=== PATIENT | male | born 1945 | race Caucasian/White ===

== ENCOUNTER 2017-07-07 12:34 | Emergency (ER) | payer MEDICARE ==
[2017-07-07 14:19] LABS: BASO % 0.1 % (0-6); EOS % 1.2 % (0-6); GRAN % 75.5 % (47-80); HEMATOCRIT 44.4 % (42.0-52.0); HEMOGLOBIN 15.5 gm/dl (14.0-18.0); LYMPH % 13.4 % (16-45); MEAN CELL VOLUME 81.5 fl (81-97); MEAN CORPUSCULAR HEMOGLOBIN 28.4 pg (27-33); MEAN CORPUSCULAR HGB CONC 34.9 g/dl (32-36); MEAN PLATELET VOLUME 8.9 fl (7.4-10.4); MONO % 9.8 % (0-9); PLATELET COUNT 237 K/uL (130-400); RED BLOOD COUNT 5.45 M/uL (4.40-5.70); RED CELL DISTRIBUTION WIDTH 13.4 % (11.5-14.5); WHITE BLOOD COUNT W/O DIFF 11.1 K/uL (4.2-12.2)
[2017-07-07 14:48] LABS: BLOOD UREA NITROGEN 12 mg/dL (8-23); CREATININE 0.7 mg/dL (0.7-1.2); EST GLOMERULAR FILTRATION RATE > 60 mL/min
[2017-07-07 14:51] LABS: GLUCOSE,RANDOM 110 mg/dL (74-109)
[2017-07-07 15:04] LABS: ERYTHROCYTE SEDIMENTATION RATE 14 mm/hr (0-20)
--- NOTE | 2017-07-07 15:25 | Emergency Department Record ---
History of Present Illness - General Chief complaint: Extremity Problem Stated complaint: LEFT HAND PAIN Time Seen by Provider: 07/07/17 13:23 Source: Patient Mode of Arrival: Ambulatory Limitations: No limitations - History of Present Illness Initial comments: pt has pain in his l hand and swelling. it has slight redness. he does not recall any injury MD Complaint: Extremity pain, Extremity swelling Onset/Timin -: Days(s) Location: Left, Hand History of Same: No Severity scale (1-10): 10 Consistency: Constant Improves with: Nothing Worsens with: Exertion, Weight bearing Associated Symptoms: Denies other symptoms - Related Data Home Medications Medication Instructions Recorded Confirmed Last Taken Losartan Potassium 25 mg PO DAILY 07/07/17 07/07/17 07/07/17 Previous Rx's Medication Instructions Recorded Indomethacin [Indocin] 50 mg PO TID #20 cap 07/07/17 Allergies Allergy/AdvReac Type Severity Reaction Status Date / Time No Known Drug Allergies Allergy Verified 07/07/17 13:11 Travel Screening - Travel/Exposure Within Last 30 Days Have you traveled within the last 30 days?: No Review of Systems Reviewed: No additional complaints except as noted below Constitutional: Reports: As per HPI. Denies: Chills, Fever, Malaise, Night sweats, Weakness, Weight change Eyes: Reports: As per HPI. Denies: Eye discharge, Eye pain, Photophobia, Vision change ENT: Reports: As per HPI. Denies: Congestion, Dental pain, Ear pain, Epistaxis , Hearing loss, Throat pain Respiratory: Reports: As per HPI. Denies: Cough, Dyspnea, Hemoptysis, Stridor, Wheezes Cardiovascular: Reports: As per HPI. Denies: Arrhythmia, Chest pain, Dyspnea on exertion, Edema, Murmurs, Orthopnea, Palpitations, Paroxysmal nocturnal dyspnea, Rheumatic Fever, Syncope Endocrine: Reports: As per HPI. Denies: Fatigue, Heat or cold intolerance, Polydipsia, Polyuria Gastrointestinal: Reports: As per HPI. Denies: Abdominal pain, Constipation, Diarrhea, Hematemesis, Hematochezia, Melena, Nausea, Vomiting Genitourinary: Reports: As per HPI. Denies: Dysuria, Frequency, Hematuria, Incontinence, Retention, Testicular pain, Testicular mass, Urgency Musculoskeletal: Reports: As per HPI. Denies: Arthralgia, Back pain, Gout, Joint swelling, Myalgia, Neck pain Skin: Reports: As per HPI. Denies: Bruising, Change in color, Change in hair/ nails, Lesions, Pruritus, Rash Neurological: Reports: As per HPI. Denies: Abnormal gait, Confusion, Headache, Numbness, Paresthesias, Seizure, Tingling, Tremors, Vertigo, Weakness Psychiatric: Reports: As per HPI. Denies: Anxiety, Auditory hallucinations, Depression, Homicidal thoughts, Suicidal thoughts, Visual hallucinations Hematological/Lymphatic: Reports: As per HPI. Denies: Anemia, Blood Clots, Easy bleeding, Easy bruising, Swollen glands Past Medical History - SOCIAL HISTORY Smoking Status: Former smoker Alcohol Use: None Drug Use: None - RESPIRATORY Hx Respiratory Disorders: No - CARDIOVASCULAR Hx Cardio Disorders: Yes Hx Hypertension: Yes Comment:: high cholesterol - NEURO Hx Neuro Disorders: No - GI Hx GI Disorders: No - Hx Genitourinary Disorders: No - ENDOCRINE Hx Endocrine Disorders: No - MUSCULOSKELETAL Hx Musculoskeletal Disorders: No - PSYCH Hx Psych Problems: No - HEMATOLOGY/ONCOLOGY Hx Hematology/Oncology Disorders: No Family Medical History Any Significant Family History?: Yes Hx Cancer: Father, Mother Physical Exam - General General Appearance: Alert, Oriented x3, Cooperative, Mild distress - Head Head exam: Normal inspection - Eye Eye exam: Normal appearance, PERRL, EOMI Pupils: Normal accommodation - ENT ENT exam: Normal exam, Mucous membranes moist, Normal external ear exam, Normal orophraynx Ear exam: Normal external inspection. negative: External canal tenderness Nasal Exam: Normal inspection. negative: Discharge, Sinus tenderness Mouth exam: Normal external inspection, Tongue normal Teeth exam: Normal inspection. negative: Dental caries Throat exam: Normal inspection. negative: Tonsillar erythema, Tonsillar exudate - Neck Neck exam: Normal inspection, Full ROM. negative: Tenderness - Respiratory Respiratory exam: Normal lung sounds bilaterally. negative: Respiratory distress - Cardiovascular Cardiovascular Exam: Regular rate, Normal rhythm, Normal heart sounds - GI/Abdominal GI/Abdominal exam: Soft, Normal bowel sounds. negative: Tenderness - Rectal Rectal exam: Deferred - exam: Deferred - Extremities Extremities exam: Full ROM, Normal capillary refill, Tenderness, Other (slight erythema and swelling of l dorsum of hand) - Back Back exam: Reports: Normal inspection, Full ROM. Denies: Muscle spasm, Rash noted, Tenderness - Neurological Neurological exam: Alert, Normal gait, Oriented X3, Reflexes normal - Psychiatric Psychiatric exam: Normal affect, Normal mood - Skin Skin exam: Dry, Intact, Normal color, Warm Course Vital Signs 07/07/17 13:19 Temperature 97.6 F Pulse Rate [ 73 Pulse Ox Probe] Respiratory 18 Rate Blood Pressure 135/85 [Left Arm] Pulse Ox 96 Medical Decision Making - Lab Data Result diagrams: 07/07/17 14:12 07/07/17 14:12 Lab Results 07/07/17 07/07/17 Range/Units 14:12 14:12 WBC 11.1 (4.2-12.2) K/uL RBC 5.45 (4.40-5.70) M/uL Hgb 15.5 (14.0-18.0) gm/dl Hct 44.4 (42.0-52.0) % MCV 81.5 (81-97) fl MCH 28.4 (27-33) pg MCHC 34.9 (32-36) g/dl RDW 13.4 (11.5-14.5) % Plt Count 237 (130-400) K/uL MPV 8.9 (7.4-10.4) fl Gran % 75.5 (47-80) % Lymphocytes % 13.4 L (16-45) % Monocytes % 9.8 H (0-9) % Eosinophils % 1.2 (0-6) % Basophils % 0.1 (0-6) % ESR 14 (0-20) mm/hr Sodium 138 (136-145) mmol/L Potassium 3.8 (3.4-4.5) mmol/L Chloride 100 (98-107) mmol/L Carbon Dioxide 27.0 (22-29) mmol/L Anion Gap 11.0 (7-16) BUN 12 (8-23) mg/dL Creatinine 0.7 (0.7-1.2) mg/dL Estimated GFR > 60 mL/min Random Glucose 110 H (74-109) mg/dL Uric Acid 6.10 (3.4-7.0) mg/dL Calcium 9.0 (8.8-10.2) mg/dL Disposition Disposition: Discharge Clinical Impression: Gout Qualifiers: Gout site: hand Gout etiology: unspecified cause Chronicity: acute Laterality: left Qualified Code(s): M10.9 - Gout, unspecified Disposition: Home, Self-Care Condition: (1) Good Instructions: Low Purine Diet (ED), Gout (ED) Additional Instructions: follow up with family doctor. return sooner if worse. moist heat Prescriptions: Indomethacin [Indocin] 50 mg PO TID #20 cap Forms: Patient Portal Access Quality - Quality Measures Quality Measures: N/A - Blood Pressure Screening Does Patient Have Any of the Following: No Blood Pressure Classification: Pre-Hypertensive BP Reading Systolic Measurement: 135 Diastolic Measurement: 85 Screening for High Blood Pressure: < Pre-Hypertensive BP, F/U Documented > [ G8950] Pre-Hypertensive Follow-up Interventions: Follow-up with rescreen every year.
--- NOTE | 2017-07-08 08:04 | RADIOLOGY REPORT ---
EXAM: LEFT HAND HISTORY: PAIN AND SWELLING. TECHNIQUE: Three views of the left hand were obtained. Comparison: None. Encounter: Initial. FINDINGS: Negative for an acute fracture or dislocation. Minor degenerative changes of the hand. The soft tissues are unremarkable. IMPRESSION: NO ACUTE OSSEOUS ABNORMALITY. MINOR DEGENERATIVE CHANGE. JOB NUMBER: [id number] MTDD
== END 2017-07-07 15:55 | disposition home or self-care (01) ==
LOC: ER 12:34
DX: M10.042 Idiopathic gout, left hand (principal); I10 Essential (primary) hypertension; Z87.891 Personal history of nicotine dependence
CPT/HCPCS: 80048; 84550; 85025; 85651; 99283; 99284

== ENCOUNTER 2017-07-17 08:21 | Emergency (ER) | payer MEDICARE ==
--- NOTE | 2017-07-17 08:48 | Emergency Department Record ---
History of Present Illness - General Chief complaint: Extremity Problem Stated complaint: GOUT Time Seen by Provider: 07/17/17 08:33 Source: Patient, RN notes reviewed Mode of Arrival: Ambulatory - History of Present Illness Initial comments: patient states his left hand painful which started on 07/06/2017 and was seen at the [facility] [place] on 07/06/2017 and told to take ibuprofen 800 mg and it didn't seem to help and so was seen in ED at [facility] on 07/07/2017 and told it was gout and given indocin 25 mg three times a day. His indocin gone 3 days ago and it got worse yesterday. The pain is in the palm of the hand more when he moves the middle finger in flexion and passive ROM not much pain. No fever no abdominal pain or nausea Onset/Timin -: Week(s) Location: Left, Hand History of Same: Yes Severity scale (1-10): 9 Quality: Sharp Consistency: Constant Improves with: Nothing Worsens with: Exertion, Palpation Associated Symptoms: Denies other symptoms - Related Data Previous Rx's Medication Instructions Recorded Indomethacin [Indocin] 50 mg PO TID #20 cap 07/07/17 Naproxen [Naprosyn] 500 mg PO Q12H #30 tab. 07/17/17 Allergies Allergy/AdvReac Type Severity Reaction Status Date / Time No Known Drug Allergies Allergy Verified 07/17/17 08:29 Travel Screening - Travel/Exposure Within Last 30 Days Have you traveled within the last 30 days?: No - Travel/Exposure Within Last Year Have you traveled outside the [place] in the last year?: No - Additonal Travel Details Have you been exposed to anyone with a communicable illness?: No - Travel Symptoms Symptom Screening: None Review of Systems Reviewed: No additional complaints except as noted below Constitutional: Reports: As per HPI. Denies: Chills, Fever, Malaise, Night sweats, Weakness, Weight change Eyes: Reports: As per HPI. Denies: Eye discharge, Eye pain, Photophobia, Vision change ENT: Reports: As per HPI. Denies: Congestion, Dental pain, Ear pain, Epistaxis , Hearing loss, Throat pain Respiratory: Reports: As per HPI. Denies: Cough, Dyspnea, Hemoptysis, Stridor, Wheezes Cardiovascular: Reports: As per HPI. Denies: Arrhythmia, Chest pain, Dyspnea on exertion, Edema, Murmurs, Orthopnea, Palpitations, Paroxysmal nocturnal dyspnea, Rheumatic Fever, Syncope Endocrine: Reports: As per HPI. Denies: Fatigue, Heat or cold intolerance, Polydipsia, Polyuria Gastrointestinal: Reports: As per HPI. Denies: Abdominal pain, Constipation, Diarrhea, Hematemesis, Hematochezia, Melena, Nausea, Vomiting Genitourinary: Reports: As per HPI. Denies: Dysuria, Frequency, Hematuria, Incontinence, Retention, Testicular pain, Testicular mass, Urgency Musculoskeletal: Reports: As per HPI, Other (left hand pain middle finger and swelling in the palm of the hand .). Denies: Arthralgia, Back pain, Gout, Joint swelling, Myalgia, Neck pain Skin: Reports: As per HPI. Denies: Bruising, Change in color, Change in hair/ nails, Lesions, Pruritus, Rash Neurological: Reports: As per HPI. Denies: Abnormal gait, Confusion, Headache, Numbness, Paresthesias, Seizure, Tingling, Tremors, Vertigo, Weakness Psychiatric: Reports: As per HPI. Denies: Anxiety, Auditory hallucinations, Depression, Homicidal thoughts, Suicidal thoughts, Visual hallucinations Hematological/Lymphatic: Reports: As per HPI. Denies: Anemia, Blood Clots, Easy bleeding, Easy bruising, Swollen glands Past Medical History - SOCIAL HISTORY Smoking Status: Former smoker Alcohol Use: Occasional Drug Use: None - RESPIRATORY Hx Respiratory Disorders: No - CARDIOVASCULAR Hx Cardio Disorders: Yes Hx Hypertension: Yes Comment:: high cholesterol - NEURO Hx Neuro Disorders: No - GI Hx GI Disorders: No - Hx Genitourinary Disorders: No - ENDOCRINE Hx Endocrine Disorders: No - MUSCULOSKELETAL Hx Musculoskeletal Disorders: No - PSYCH Hx Psych Problems: No - HEMATOLOGY/ONCOLOGY Hx Hematology/Oncology Disorders: No Family Medical History Any Significant Family History?: Yes Hx Cancer: Father, Mother Physical Exam - General General Appearance: Alert, Oriented x3, Cooperative, No acute distress - Head Head exam: Normal inspection - Eye Eye exam: Normal appearance, PERRL Pupils: Normal accommodation - ENT ENT exam: Normal exam, Mucous membranes moist, Normal external ear exam, Normal orophraynx, TM's normal bilaterally Ear exam: Normal external inspection. negative: External canal tenderness Nasal Exam: Normal inspection. negative: Discharge, Sinus tenderness Mouth exam: Normal external inspection, Tongue normal Teeth exam: Normal inspection. negative: Dental caries Throat exam: Normal inspection. negative: Tonsillar erythema, Tonsillar exudate - Neck Neck exam: Normal inspection, Full ROM. negative: Tenderness - Respiratory Respiratory exam: Normal lung sounds bilaterally. negative: Respiratory distress - Cardiovascular Cardiovascular Exam: Regular rate, Normal rhythm, Normal heart sounds - GI/Abdominal GI/Abdominal exam: Soft, Normal bowel sounds. negative: Tenderness - Rectal Rectal exam: Deferred - exam: Deferred - Extremities Extremities exam: Normal inspection, Full ROM, Normal capillary refill, Tenderness (flexor tendon pain middle finger) - Back Back exam: Reports: Normal inspection, Full ROM. Denies: Muscle spasm, Rash noted, Tenderness - Neurological Neurological exam: Alert, Normal gait, Oriented X3, Reflexes normal - Psychiatric Psychiatric exam: Normal affect, Normal mood - Skin Skin exam: Dry, Intact, Normal color, Warm Course Vital Signs 07/17/17 08:30 Temperature 97.6 F Pulse Rate 67 Respiratory 18 Rate Blood Pressure 131/71 Pulse Ox 96 Medical Decision Making - Lab Data Result diagrams: 07/17/17 08:58 07/17/17 08:58 Disposition Clinical Impression: Tendonitis Disposition: Home, Self-Care Condition: (1) Good Additional Instructions[facility] Prescriptions: Naproxen [Naprosyn] 500 mg PO Q12H #30 tab.dr Forms: Patient Portal Access Time of Disposition: 10:29 Quality - Quality Measures Quality Measures: N/A - Blood Pressure Screening Does Patient Have Any of the Following: No Blood Pressure Classification: Pre-Hypertensive BP Reading Systolic Measurement: 131 Diastolic Measurement: 71 Screening for High Blood Pressure: < Pre-Hypertensive BP, F/U Documented > [ G8950] Pre-Hypertensive Follow-up Interventions: Referral to alternative/primary care provider.
[2017-07-17] MEDS ORDERED: KETOROLAC 30 MG/ML VIAL IVP ONE (08:51)
[2017-07-17 09:04] LABS: BASO % 0.2 % (0-6); GRAN % 70.8 % (47-80); HEMATOCRIT 45.7 % (42.0-52.0); HEMOGLOBIN 15.7 gm/dl (14.0-18.0); MEAN CELL VOLUME 82.9 fl (81-97); MEAN CORPUSCULAR HEMOGLOBIN 28.5 pg (27-33); MEAN CORPUSCULAR HGB CONC 34.4 g/dl (32-36); MEAN PLATELET VOLUME 8.9 fl (7.4-10.4); PLATELET COUNT 235 K/uL (130-400); RED BLOOD COUNT 5.51 M/uL (4.40-5.70); RED CELL DISTRIBUTION WIDTH 13.4 % (11.5-14.5); WHITE BLOOD COUNT W/O DIFF 8.9 K/uL (4.2-12.2)
[2017-07-17 09:16] LABS: BLOOD UREA NITROGEN 13 mg/dL (8-23); CREATININE 0.7 mg/dL (0.7-1.2); EST GLOMERULAR FILTRATION RATE > 60 mL/min
[2017-07-17 09:19] LABS: GLUCOSE,RANDOM 122 mg/dL (74-109)
== END 2017-07-17 10:40 | disposition home or self-care (01) ==
LOC: ER 08:21
DX: M65.842 Other synovitis and tenosynovitis, left hand (principal); I10 Essential (primary) hypertension; Z87.891 Personal history of nicotine dependence
CPT/HCPCS: 99284 ×2; 96374; 84550; 85025; 80048; J1885